=== PATIENT | male | born 1975 | race Caucasian/White ===

== ENCOUNTER 2022-01-11 01:40 | Observation (INO) ==
[2022-01-11 04:56] VITALS: BP 132/84; PULSE 69; TEMP 97.6; O2SAT 96
[2022-01-11] MEDS ORDERED: Naloxone 0.4 MG/ML INJ IVP PRN (05:01)
[2022-01-11] MEDS ORDERED: Melatonin 3 MG TABLET PO PRN (05:01)
[2022-01-11] MEDS ORDERED: Gadolinium Contrast Agent (WT Based) IV PRN (05:37)
[2022-01-11 06:43] LABS: Basophils % 0.2 %; Eosinophils % 0.1 %; Hematocrit 44.8 % (37.5-50.1); Hemoglobin 15.2 g/dL (12.9-16.9); Immature Granulocytes % 0.5 % (0-4); Lymphocytes # 0.7 K/mcL (0.6-4.6); Lymphocytes % 5.7 %; Mean Corpuscular HGB Conc 33.9 g/dL (31.6-35.5); Mean Corpuscular Hemoglobin 29.2 pg (28.0-33.3); Mean Corpuscular Volume 86.2 fL (83.0-100.0); Mean Platelet Volume 9.3 fL (9.4-12.4); Monocytes # 0.1 K/mcL (0.0-1.3); Monocytes % 0.5 %; Neutrophils # 12.2 K/mcL (1.6-8.9); Platelet Count 347 K/mcL (140-400); Red Cell Distribution Width 12.3 % (11.5-14.5); White Blood Count 13.1 K/mcL (4.3-11.1)
[2022-01-11 06:50] LABS: INR 1.1; Prothrombin Time 12.4 Seconds (9.4-12.1)
[2022-01-11 07:02] LABS: BUN/Creatinine Ratio 15 (6-26); Blood Urea Nitrogen 16 mg/dL (6-20); Calcium 9.7 mg/dL (8.6-10.3); Carbon Dioxide 27 mEq/L (23-29); Chloride 103 mEq/L (98-107); Glucose 124 mg/dL (70-105); Osmolality,Calculated 287 (280-300); Phosphorous 2.4 mg/dL (2.7-4.5); Sodium 137 mEq/L (136-145); eGFR For African Americans > 60 (> 60); eGFR For Non-African Americans > 60 (> 60)
== END 2022-01-11 15:55 | disposition home or self-care (01) ==
LOC: 4WAOSI → SUATTDRO 04:37 → 4WAOSI 04:49
PROVIDERS: ADMIT Internal Medicine; ATTEND Student in an Organized Health Care Education/Training Program